=== PATIENT | female | born 1985 ===

== ENCOUNTER 2018-07-31 08:50 | Emergency (ER) | payer MEDICAID ==
[~2018-07-31] VITALS: Ht 160 cm; Wt 62.0 kg
[2018-07-31 08:54] VITALS: BP 110/73
--- NOTE | 2018-07-31 08:59 | NUR ---
PT AMBULATORY TO ROOM WITH STEADY GAIT.
[2018-07-31] MEDS ORDERED: KETOROLAC 30 MG/1 ML ONE (09:17)
--- NOTE | 2018-07-31 09:26 | NUR ---
PHLEBOTOMY IS AT THE BEDSIDE FOR BLOOD SAMPLING
[2018-07-31] MEDS ORDERED: KETOROLAC 30 MG/1 ML IM ONE (09:30)
[2018-07-31 09:38] LABS: BASOPHILS # (AUTO) 0.03 x10^3/uL (0-0.1); BASOPHILS % (AUTO) 1 % (0-1); EOSINOPHILS % (AUTO) 8 % (1-7); LYMPHOCYTES # (AUTO) 1.42 x10^3/uL (1-3.4); LYMPHOCYTES % (AUTO) 27 % (22-44); MD NO; MEAN CORPUSCULAR HEMOGLOBIN 31.7 pg (27.0-34.8); MEAN CORPUSCULAR HGB CONC 33.4 g/dL (32.4-35.8); MEAN CORPUSCULAR VOLUME 94.8 fL (80-100); MEAN PLATELET VOLUME 7.6 fL (7.4-10.4); MONOCYTES # (AUTO) 0.59 x10^3/uL (0.2-0.8); MONOCYTES % (AUTO) 11 % (2-9); NEUTROPHILS # (AUTO) 2.87 x10^3/uL (1.8-6.8); NEUTROPHILS % (AUTO) 54 % (42-75); PLATELET COUNT 333 x10^3/uL (130-400); RED BLOOD COUNT 4.18 x10^6/uL (3.82-5.3); RED CELL DISTRIBUTION WIDTH 13.8 % (9.6-15.2)
[2018-07-31 09:44] LABS: ALBUMIN 3.6 g/dL (3.4-5.0); ANION GAP 4 mmol/L (5-15); CALCIUM 8.8 mg/dL (8.5-10.1); CHLORIDE 110 mmol/L (98-107); CREATININE 0.64 mg/dL (0.55-1.02)
[2018-07-31 09:46] LABS: CREATINE KINASE, TOTAL 102 U/L (26-192)
== END 2018-07-31 11:26 | disposition home or self-care (01) ==
LOC: ED 10:15
DX: S86.111A Strain of other muscle(s) and tendon(s) of posterior muscle group at lower leg level, right leg, initial encounter (principal); F17.200 Nicotine dependence, unspecified, uncomplicated; X58.XXXA Exposure to other specified factors, initial encounter; Y93.89 Activity, other specified; Y92.89 Other specified places as the place of occurrence of the external cause; Y99.8 Other external cause status
CPT/HCPCS: 36415; 80048; 82040; 82550; 85025; 93970; 96372; 99284; J1885

== ENCOUNTER 2018-08-27 11:53 | Emergency (ER) | payer MEDICAID ==
[~2018-08-27] VITALS: Ht 157.5 cm; Wt 60.0 kg
[2018-08-27 12:05] VITALS: BP 103/73
--- NOTE | 2018-08-27 12:35 | NUR ---
FIRST CONTACT WITH PT. PT STATES "I HAVE A RATTLE IN MY CHEST. I'VE HAD CONGESTION FOR AT LEAST 3 WEEKS. I'M COUGHING." NO C/O F/C PT'S AOX4. RESPS EVEN AND UNLABORED. PA AT BEDSIDE TO ASSESS.
--- NOTE | 2018-08-27 12:43 | NUR ---
PT GIVEN DC INSTRUCTIONS AND SCRIPTS. PT EDUCATED REGARDING DC MEDICATIONS. PT'S AOX4. RESPS EVEN AND UNLABORED. PT AMB TO DC WITH STEADY GAIT. NO ACUTE DISTRESS AT DC.
== END 2018-08-27 12:43 | disposition home or self-care (01) ==
LOC: ED 12:37
DX: J20.9 Acute bronchitis, unspecified (principal); B96.89 Other specified bacterial agents as the cause of diseases classified elsewhere; M94.0 Chondrocostal junction syndrome [Tietze]; F17.210 Nicotine dependence, cigarettes, uncomplicated
CPT/HCPCS: 71046; 99283

== ENCOUNTER 2018-08-29 09:34 | Emergency (ER) | payer MEDICAID ==
[~2018-08-29] VITALS: Ht 160 cm; Wt 61.8 kg
[2018-08-29] MEDS ORDERED: DIPHENHYDRAMINE 25 MG CAPSULE ONE (09:58)
[2018-08-29] MEDS ORDERED: FAMOTIDINE 20 MG TABLET ONE (09:58)
[2018-08-29] MEDS ORDERED: FAMOTIDINE 20 MG TABLET PO ONE (10:00)
[2018-08-29] MEDS ORDERED: DIPHENHYDRAMINE 25 MG CAPSULE PO ONE (10:00)
[2018-08-29 10:45] VITALS: BP 104/58
--- NOTE | 2018-08-29 10:46 | NUR ---
Patient/Caregiver given discharge instructions and they have confirmed that they understand the instructions. Patient ambulatory with steady gait.
== END 2018-08-29 10:47 | disposition home or self-care (01) ==
LOC: ED 10:24
DX: R21 Rash and other nonspecific skin eruption (principal); T36.3X5A Adverse effect of macrolides, initial encounter; J06.9 Acute upper respiratory infection, unspecified; Y92.89 Other specified places as the place of occurrence of the external cause; F17.200 Nicotine dependence, unspecified, uncomplicated; Z90.721 Acquired absence of ovaries, unilateral
CPT/HCPCS: 99284; J7512; Q0163

== ENCOUNTER 2020-09-08 00:06 | Inpatient (IN) | payer BC, MEDICAID ==
[~2020-09-08] VITALS: Ht 160 cm; Wt 85.0 kg
[2020-09-08 06:49] VITALS: BP 135/83
[2020-09-08] MEDS ORDERED: NEWBORN KIT ONE (07:00)
[2020-09-08] MEDS ORDERED: FENTANYL PF 100 MCG/2ML IVPush PRN (07:00)
[2020-09-08] MEDS ORDERED: CALCIUM CARBONATE 500 MG TAB.CHEW PO PRN (07:00)
[2020-09-08] MEDS ORDERED: FENTANYL PF 100 MCG/2ML IV PRN (07:00)
[2020-09-08] MEDS ORDERED: OXYTOCIN 30U/ 0.9% NaCL 500ML 500 ML IV PRN (07:00)
[2020-09-08] MEDS: D5%-LACTATED RINGERS 1,000 ML IV SCH ×2 (07:00→15:00)
[2020-09-08] MEDS ORDERED: LIDOCAINE 1%, 20ML ONE (07:00)
[2020-09-08] MEDS ORDERED: TERBUTALINE 1 MG/ML, 1ML SQ PRN (07:00)
[2020-09-08] MEDS ORDERED: MISOPROSTOL 200 MCG TABLET ONE (07:00)
[2020-09-08] MEDS ORDERED: TERBUTALINE 1 MG/ML, 1ML IVPush PRN (07:00)
[2020-09-08] MEDS ORDERED: OXYTOCIN 30U/ 0.9% NaCL 500ML 500 ML IV ONE (07:00)
[2020-09-08] MEDS ORDERED: ONDANSETRON 2MG/ML, 2ML IVPush PRN ×2 (07:00→11:30)
[2020-09-08] MEDS: LACTATED RINGERS 1,000 ML IV SCH ×2 (07:06→11:08)
[2020-09-08 07:09] LABS: BASOPHILS % (AUTO) 1 % (0-1); EOSINOPHILS % (AUTO) 3 % (1-7); LYMPHOCYTES % (AUTO) 21 % (22-44); MEAN CORPUSCULAR HEMOGLOBIN 31.4 pg (27.0-34.8); MEAN CORPUSCULAR HGB CONC 33.9 g/dL (32.4-35.8); MEAN PLATELET VOLUME 9.4 fL (7.4-10.4); MONOCYTES % (AUTO) 9 % (2-9); NEUTROPHILS % (AUTO) 67 % (42-75); PLATELET COUNT 255 x10^3/uL (130-400); RED BLOOD COUNT 4.08 x10^6/uL (3.82-5.3); RED CELL DISTRIBUTION WIDTH 14.4 % (9.6-15.2)
[2020-09-08 07:14] LABS: MD NO
[2020-09-08] MEDS ORDERED: PREN-59 PO (07:56)
[2020-09-08] MEDS ORDERED: ACYC-40 PO (07:57)
[2020-09-08] MEDS ORDERED: FENTANYL/BUPIV./NS/PF 250 ML EPIDCONT SCH ×2 (08:30→11:30)
[2020-09-08 08:59] LABS: ALANINE AMINOTRANSFERASE 26 U/L (12-78); ALBUMIN 2.6 g/dL (3.4-5.0); ANION GAP 6 mmol/L (5-15); CALCIUM 8.2 mg/dL (8.5-10.1); CHLORIDE 110 mmol/L (98-107); CREATININE 0.63 mg/dL (0.55-1.02)
[2020-09-08 09:05] LABS: ALKALINE PHOSPHATASE 189 U/L (45-117); BILIRUBIN,TOTAL 0.2 mg/dL (0.2-1.0); TOTAL PROTEIN 6.3 g/dL (6.4-8.2)
[2020-09-08 09:06] LABS: BILIRUBIN, DIRECT < 0.1 mg/dL (0.1-0.2)
[2020-09-08 09:22] LABS: CREATININE,URINE RANDOM 79.3 mg/dL
[2020-09-08] MEDS ORDERED: FENTANYL PF 500 MCG, BUPIVACAINE/PF 0.5%, 30ML 62.5 ML in SODIUM CHLORIDE 0.9% 177.5 ML EPIDCONT SCH (09:30)
[2020-09-08] MEDS ORDERED: BUPIVACAINE 0.25% ONE (11:17)
[2020-09-08] MEDS ORDERED: EPHEDRINE 50 MG/ML, 1ML IVPush PRN (11:30)
[2020-09-08] MEDS ORDERED: DIPHENHYDRAMINE 50 MG/ML, 1ML IVPush PRN (11:30)
[2020-09-08] MEDS ORDERED: NALOXONE 0.4 MG/ML, 1ML IVPush PRN (11:30)
[2020-09-08] MEDS ORDERED: LACTATED RINGERS 1,000 ML IV SCH (11:30)
[2020-09-08] MEDS ORDERED: LACTATED RINGERS 1,000 ML IVBOLUS PRN (11:30)
[2020-09-08 19:30] VITALS: BP 134/83
[2020-09-08 20:03] LABS: AMPHETAMINE SCREEN, URINE Negative (Negative); BARBITURATE SCREEN, URINE Negative (Negative); BENZODIAZEPINE SCREEN, URINE Negative (Negative); CANNABINOID SCREEN, URINE Positive (Negative); COCAINE SCREEN, URINE Negative (Negative); METHADONE SCREEN, URINE Negative (Negative); OPIATE SCREEN, URINE Negative (Negative)
[2020-09-08] MEDS ORDERED: SIMETHICONE 80 MG CHEW TAB PO PRN (23:30)
[2020-09-08] MEDS ORDERED: MISOPROSTOL 200 MCG TABLET PR PRN (23:30)
[2020-09-08] MEDS ORDERED: METHYLERGONOVINE 0.2 MG/ML IM PRN (23:30)
[2020-09-08] MEDS ORDERED: DOCUSATE 100 MG CAPSULE PO PRN (23:30)
[2020-09-08] MEDS ORDERED: CARBOPROST TROMETHAMINE 250 MCG/ML, 1ML IM PRN (23:30)
[2020-09-08] MEDS ORDERED: ONDANSETRON 2MG/ML, 2ML IV PRN (23:30)
[2020-09-09] VITALS (8 sets, daily range): BP systolic 121–142; BP diastolic 74–94
[2020-09-09] MEDS: OXYTOCIN 30U/ 0.9% NaCL 500ML 500 ML IV SCH ×3 (00:27→19:30)
[2020-09-09] MEDS: OXYcodone/APAP 5/325MG TABLET PO PRN ×2 (05:33→09:28)
[2020-09-09] MEDS: IBUPROFEN 600 MG TABLET PO PRN ×3 (05:33→19:28)
[2020-09-09 07:13] LABS: BASOPHILS % (AUTO) 1 % (0-1); EOSINOPHILS % (AUTO) 1 % (1-7); LYMPHOCYTES % (AUTO) 13 % (22-44); MEAN CORPUSCULAR HEMOGLOBIN 31.5 pg (27.0-34.8); MEAN PLATELET VOLUME 8.9 fL (7.4-10.4); MONOCYTES % (AUTO) 8 % (2-9); NEUTROPHILS % (AUTO) 76 % (42-75); PLATELET COUNT 208 x10^3/uL (130-400); RED BLOOD COUNT 3.84 x10^6/uL (3.82-5.3); RED CELL DISTRIBUTION WIDTH 14.1 % (9.6-15.2)
[2020-09-09 07:16] LABS: MD NO
[2020-09-09] MEDS: PRENATAL VIT/IRON/FA 1 EACH TABLET PO SCH (09:28)
[2020-09-09] MEDS: ACETAMINOPHEN 325 MG TABLET PO PRN ×2 (16:54→22:41)
[2020-09-09] MEDS: OXYcodone IR 5MG TABLET PO PRN ×2 (16:57→22:42)
[2020-09-10] MEDS: IBUPROFEN 600 MG TABLET PO PRN ×2 (03:57→12:14)
[2020-09-10] MEDS: OXYcodone/APAP 5/325MG TABLET PO PRN ×2 (03:57→12:14)
[2020-09-10] MEDS: OXYTOCIN 30U/ 0.9% NaCL 500ML 500 ML IV SCH ×3 (05:30→19:36)
[2020-09-10 07:00] VITALS: BP 130/85
[2020-09-10] MEDS ORDERED: OXYC1TAB14 PO (09:02)
[2020-09-10] MEDS ORDERED: DOCU-131 PO (09:02)
[2020-09-10] MEDS ORDERED: IBUP-1222 PO (09:02)
[2020-09-10] MEDS: PRENATAL VIT/IRON/FA 1 EACH TABLET PO SCH (12:14)
[2020-09-10 18:24] LABS: AMPHETAMINE SCREEN, URINE Negative (Negative); BARBITURATE SCREEN, URINE Negative (Negative); BENZODIAZEPINE SCREEN, URINE Negative (Negative); CANNABINOID SCREEN, URINE Positive (Negative); COCAINE SCREEN, URINE Negative (Negative); METHADONE SCREEN, URINE Negative (Negative); OPIATE SCREEN, URINE Negative (Negative)
== END 2020-09-10 21:14 | disposition home or self-care (01) | DRG 807 ==
LOC: LDIP 06:30 → 2NW 09-09 01:26
PROVIDERS: ADMIT Obstetrics & Gynecology Maternal & Fetal Medicine; ATTEND Obstetrics & Gynecology Maternal & Fetal Medicine
PROC: 10E0XZZ Delivery of Products of Conception, External Approach (ICD-10-PCS; principal; 2020-09-08)
PROC: 3E0R3BZ Introduction of Anesthetic Agent into Spinal Canal, Percutaneous Approach (ICD-10-PCS; 2020-09-08)
PROC: 00HU33Z Insertion of Infusion Device into Spinal Canal, Percutaneous Approach (ICD-10-PCS; 2020-09-08)
PROC: 10907ZC Drainage of Amniotic Fluid, Therapeutic from Products of Conception, Via Natural or Artificial Opening (ICD-10-PCS; 2020-09-08)
PROC: 0UQGXZZ Repair Vagina, External Approach (ICD-10-PCS; 2020-09-08)
DX: O99.334 Smoking (tobacco) complicating childbirth (principal); Z37.0 Single live birth; F17.210 Nicotine dependence, cigarettes, uncomplicated; Z20.822 Contact with and (suspected) exposure to COVID-19; O71.4 Obstetric high vaginal laceration alone; Z3A.39 39 weeks gestation of pregnancy
CPT/HCPCS: 36415; 80053; 80307; 82248; 82570; 84156; 84550; 85025; 86592; 86850; 86900; 87635; G0378; J2590; J3010; J7120